=== PATIENT | female | born 1965 | race Caucasian/White ===

== ENCOUNTER 2023-02-06 07:30 | Day surgery (SDC) | payer BC, OTHER ==
[~2023-02-06] VITALS: Ht 170.2 cm; Wt 99.1 kg
[~2023-02-06 07:30] MED LIST: IBUPROFEN400 MG PO; LEVOTHYROXINE25 MC1 PO; LIPITOR10 MG PO; MUCINEX100 MG PO; SYNTHROID25 MCG PO; VITAMIN D5000 UNIT PO
[2023-02-06 07:47] VITALS: BP 117/54
[2023-02-06] MEDS ORDERED: VITAMIN D350 MC3 PO ×2 (07:49)
--- NOTE | 2023-02-06 09:19 | NUR ---
02/06/23 0919 Susan Cabral 0910-PT ARRIVES AWAKE AND TALKING TO PACU. DENIES PAIN/NAUSEA. VSS. 0918-PT RESTING WITH EYES CLOSED. RESP EVEN AND UNLABORED. PT PASSING GAS.
[2023-02-06 09:37] VITALS: BP 106/69
--- NOTE | 2023-02-06 15:08 | OR ---
[facility] [address], [place] [address] Signed DATE OF OPERATION: 02/06/2023 SURGEON: Venus Martínez MD PREOPERATIVE DIAGNOSIS: History of colonic polyps 2018, known diverticulosis. POSTOPERATIVE DIAGNOSIS: Diverticulosis. No evidence of polyps. PROCEDURE: Total colonoscopy to cecum. ANESTHESIA: Intravenous sedation; fentanyl 150 mcg and Versed 5 mg. INDICATION: This 57-year-old woman is a patient of [facility] at [facility]. She underwent colonoscopy in [address] Tye Gomez and was found to have an 8 mm polyp in the left colon. She is symptom free having no bleeding diarrhea or constipation and no family history of colon cancer. She is admitted at this time to undergo surveillance colonoscopy. She understands the risk of bleeding, infection, and perforation. FINDINGS: The prep was good. Complete colonoscopy was undertaken with visualization of the cecum. Full intubation of the cecum was accomplished. elevate the mucosa behind the ileocecal valve, showing no sign of abnormality. There were numerous diverticula of sigmoid and left colon and scattered diverticula throughout the remaining colon, but no evidence of polyp or colitis. DESCRIPTION OF PROCEDURE: The patient was brought to the endoscopy suite and placed in the lateral decubitus position, given intravenous sedation to the point of slurred speech and nystagmus. Digital rectal examination was normal. An Olympus video colonoscope was passed in the rectum and manipulated throughout the colon noting numerous diverticula of the sigmoid and left colon. The scope was promptly advanced to the right colon with the visualization of the ileocecal valve and cecum. Efforts to intubate the cecum itself were unsuccessful, though it was visualized and the Electronically Signed By: VENUS MARTÍNEZ MD 02/06/23 1508 PATIENT NAME: LEVI OCHOA OPERATIVE REPORT DATE OF : 65 REPORT #: [id number] PHYSICIAN: VENUS MARTÍNEZ MD PCP: NAI CESAR REPORT IS CONFIDENTIAL AND NOT TO BE RELEASED WITHOUT AUTHORIZATION [facility] [address], [place] [address] Signed mucosa behind the ileocecal valve was grasped with the biopsy forceps, elevated and found to have no sign of abnormality. The scope was withdrawn from that point and examination throughout confirmed diverticulosis throughout the colon, but no evidence of polyps or colitis. Retroflexed view was normal. The scope was removed and the patient was taken to the recovery room in good condition. CONCLUDING DIAGNOSIS: Diverticulosis. No sign of polyp. PLAN: Recommend repeat colonoscopy in 10 years, sooner if clinically indicated. Would recommend high-fiber diet as well. She will return to the ongoing care of ROG[facility] at [facility]. MD GABRIEL Valadez/SHELBYL /[id number] cc: Nai Cesar Copies: NAI CESAR ~ Electronically Signed By: VENUS MARTÍNEZ MD 02/06/23 1508 PATIENT NAME: LEVI OCHOA DAIANA OPERATIVE REPORT DATE OF : 65 REPORT #: [id number] PHYSICIAN: VENUS MARTÍNEZ MD PCP: NAI CESAR REPORT IS CONFIDENTIAL AND NOT TO BE RELEASED WITHOUT AUTHORIZATION
== END 2023-02-06 09:45 | disposition home or self-care (01) ==
LOC: DS 07:30 → OPS 07:30 → DS 08:30 → OPS 08:30
PROVIDERS: ATTEND Surgery
PROC: 0DBC8ZX Excision of Ileocecal Valve, Via Natural or Artificial Opening Endoscopic, Diagnostic (ICD-10-PCS; principal; 2023-02-06 08:30)
DX: Z12.11 Encounter for screening for malignant neoplasm of colon (principal); K57.30 Diverticulosis of large intestine without perforation or abscess without bleeding; E66.9 Obesity, unspecified; Z86.010 Personal history of colon polyps
CPT/HCPCS: 99153; G0500; J2250; J3010; J7121

== ENCOUNTER 2023-06-08 14:26 | Emergency (ER) | payer BC, OTHER ==
[~2023-06-08] VITALS: Ht 170.2 cm; Wt 99.8 kg
[~2023-06-08 14:26] MED LIST changes: +VITAMIN D350 MC3 PO
[2023-06-08] MEDS ORDERED: ASPIRIN 81 MG CHEW PO ONE (14:45)
[2023-06-08 14:49] LABS: BASOPHILS 0.8 % (0-2); EOSINOPHILS 2.5 % (0-6); HEMATOCRIT 40.3 % (35.0-50.0); HEMOGLOBIN 13.6 g/dL (12.0-18.0); LYMPHOCYTES 43.9 % (24-44); MCHC 33.8 g/dl (30-36); MCV 91.7 fl (81-99); MONOCYTES 8.5 % (0-12); NEUTROPHILS 44.3 % (39-80); PLATELET COUNT 190 K/uL (140-440); RBC 4.39 M/ul (4.3-5.7); RDW 13.1 (10.5-15.0)
[2023-06-08 15:15] LABS: INR 0.94 (0.80-1.30); PROTIME 12.1 Sec (11.2-14.2)
[2023-06-08 15:16] LABS: ALBUMIN 3.3 g/dL (3.4-5.0); ALBUMIN/GLOBULIN RATIO 0.8 (1.1-2.4); BILIRUBIN, TOTAL 0.6 ng/dL (0.2-1.0); CALCIUM 8.6 mg/dL (8.5-10.1); MAGNESIUM 2.1 mg/dL (1.8-2.4); PROTEIN, TOTAL 7.4 g/dL (6.4-8.2)
[2023-06-08 15:30] LABS: INFLUENZA B NAA NEGATIVE (NEGATIVE); RESPIRATORY SYNCYTIAL VIR NAA NEGATIVE (NEGATIVE)
[2023-06-08] MEDS ORDERED: CYCLOBENZAPRINE10 MG PO (16:12)
[2023-06-08 16:28] VITALS: BP 114/61
--- NOTE | 2023-06-11 23:45 | EKG ---
[facility] [address] [facility] [place] [address] Signed Normal sinus rhythm Normal ECG Confirmed by Rene Ohara M.D. ([id number]) on 06/11/2023 11:45:12 PM Electronically Signed By: RENE OHARA MD 06/11/23 2345 PATIENT NAME: LEVI OCHOA Electrocardiogram DATE OF : 65 PHYSICIAN: RENE OHARA MD REPORT #: [id number] REPORT IS CONFIDENTIAL AND NOT TO BE RELEASED WITHOUT AUTHORIZATION
== END 2023-06-08 16:29 | disposition home or self-care (01) ==
LOC: ED 14:26
PROVIDERS: Family Medicine
DX: R07.89 Other chest pain (principal); E03.9 Hypothyroidism, unspecified; Z79.899 Other long term (current) drug therapy
CPT/HCPCS: 36415; 71045; 80053; 83735; 83880; 84484; 85025; 85379; 85610; 87502; 93005; 93010; 99285-25; A9270; U0002